=== PATIENT | female | born 1980 | race Caucasian/White ===

== ENCOUNTER 2018-06-20 05:56 | Day surgery (SDC) | payer OTHER ==
[2018-06-20] MEDS ORDERED: FENTAnyl 50 MCG/ML VIAL (08:06)
[2018-06-20] MEDS ORDERED: MIDAZOLAM 1 MG/ML 2 ML INJ ×2 (08:06)
== END 2018-06-20 12:15 | disposition home or self-care (01) ==
LOC: GIL 05:56
DX: K29.70 Gastritis, unspecified, without bleeding (principal)
CPT/HCPCS: 43239; 88305; 88312